=== PATIENT | female | born 1980 | race Caucasian/White ===

== ENCOUNTER 2022-05-15 23:26 | Inpatient (IN) | payer OTHER ==
[~2022-05-15] VITALS: Ht 167.6 cm; Wt 71.1 kg
[2022-05-15] MEDS ORDERED: HYDROXYZINE HCL50 MG (23:38)
[2022-05-15] MEDS ORDERED: SEROQUEL100 MG PO (23:38)
--- NOTE | 2022-05-16 04:35 | NUR ---
THIS RN DOWN TO ED TO RECEIVE PT. BEDSIDE REPORT RECEIVED FROM ESVIN FAITH. PT RESTING IN STRETCHER. IV FLUIDS INFUSING WNL. 0440 PT BROUGHT TO MED/SURG FLOOR BY THIS RN. ESVIN FRIAS IN TO ASSIST WITH VITALS. VITALS COMPLETE. PRN PAIN MEDICATION ADMINISTERED, SEE MAR. PT REPORTING PAIN 10/10 IN RUQ. QUICK ADMIT COMPLETE. DR. ENRIQUEZ IN TO TALK WITH PT REGARDING PROCEDURE. CONSENT FORM SIGNED. ALL QUESTIONS ANSWERED. ASSESSMENT COMPLETE. LUNG SOUNDS CLEAR. BOWEL TONES ACTIVE. ABD FIRM IN RUQ AND TENDERNESS REPORTED WITH PALPATION. PT DENIES NAUSEA AT THIS TIME. PT REPORTING LAST BM ON 05/14/22. PT REQUESTING TOILETING. SBA FROM BED TO RESTROOM AND BACK TO BED WITH NO ISSUES. ESVIN CHRISTY IN TO PLACE GILLES. ANESTHESIOLOGIST, HAT AND CAP PARTS CUTTER HAND IN ROOM TO TALK WITH PT. PRE-OP WIPE DOWN COMPLETE. LINENS CHANGED. PT REQUESTING REMOTE FOR TV. REMOTE PROVIDED. PT DENIES ANY OTHER NEEDS AT THIS TIME. CALL LIGHT IN REACH.
--- NOTE | 2022-05-16 06:05 | NUR ---
SURGERY NURSE IN TO TAKE PT DOWN TO SURGERY.
--- NOTE | 2022-05-16 06:27 | NUR ---
PTs FATHER TO NURSES STATION. THIS RN SHOWED FATHER TO PTs ROOM PT IS IN SURGERY AT THIS TIME. FATHER DENIES ANY NEEDS AT THIS TIME.
--- NOTE | 2022-05-16 07:47 | NUR ---
05/16/22 0747 Poppy Caba 0738 PATIENT ARRIVES TO PACU UNRESPONSIVE TO PAIN. ORAL AIRWAY IN PLACE. RESP EVEN AND UNLABORED, MASK AT 8 LITERS. NC LEFT NARE CONNECTED TO LOW/MED SUCTION AT 80. DARK RED BLOOD NOTED FROM SUCTION TUBING. 0747 PATIENT CONTINUES TO BE UNRESPONSIVE TO PAIN. RESP EVEN AND UNLABORED, OXYGEN DECREASED TO 6 LITERS.
--- NOTE | 2022-05-16 08:37 | NUR ---
PATIENT RETURNED FROM SURGERY, NG AND CAMPOVERDE CATHETER IN PLACE. UPPER MIDLINE INCISION IS COVERED WITH GUAZE AND TAPE AND IS CDI, ICE PACK TO INCISION. VITALS ARE STABLE, PATIENT IS 98% ON ROOM AIR. PATIENT DENIES PAIN TO ABDOMEN, ENDORSES THAT NG TUBE IS CAUSING 5/10 DISCOMFORT. NG TUBE IS DRAINING MINIMAL BROWN DRAINAGE, CAMPOVERDE CATHETER IS DRAINING CLEAR YELLOW URINE. PATIENT'S FATHER IS IN AND OUT OF ROOM.
--- NOTE | 2022-05-16 09:29 | NUR ---
VITALS CONTINUS TO BE STABLE. NG WITH MINIMAL DRAINAGE, PATIENT IS SITTING UP IN BED MORE. PATIENT CONTINUES TO DENY ABD PAIN. IV ABX INFUSING AT THIS TIME.
--- NOTE | 2022-05-16 11:37 | NUR ---
PATIENT IS RESTING IN BED, DENIES PAIN, PLAN TO CALL DR. ENRIQUEZ AFTER MIDDAY REGARDING NG TUBE.
--- NOTE | 2022-05-16 12:09 | NUR ---
PT AWAKE IN BED, AWAKE TALKING ON THE PHONE. DENIES FURTHER NEEDS. CALL LIGHT IN REACH.
--- NOTE | 2022-05-16 13:02 | NUR ---
CALL TO DR. ENRIQUEZ. IAN TO D/C NGRick AND GILLES. PATIENT STARTED ON CLEAR LIQUIDS AND CHICKEN BROTH PROVIDED. PATIENT IS UP TO THE CHAIR WITH SBA, CALL LIGHT WITHIN REACH. PATIENT CONTINUES TO DENY ABD PAIN.
--- NOTE | 2022-05-16 14:32 | NUR ---
PATIENT HAS TOLERATED 200ML OF CLEAR LIQUIDS, NO NAUSEA, PATIENT IS GOING SLOWLY WITH FLUIDS. PATIENT DENIES THE URGE TO VOID, IS UP TO THE CHAIR. PATIENT REPORTS MINIMAL 1-2/10 ABDOMEN PAIN. PATIENT'S FATHER AND CHILDREN ARE HERE TO VISIT
--- NOTE | 2022-05-16 16:55 | NUR ---
PATIENT UP IN HALLWAY TO AMBULATE 1 LAP. PATIENT GIVEN TORADOL AND DILAUDID FOR 9/10 PAIN PRIOR TO AMBULATING. PATIENT HAS VOIDED 300ML OF URINE SINCE CAMPOVERDE REMOVAL.
--- NOTE | 2022-05-16 18:16 | NUR ---
PATIENT HAD HERNIA SURGERY TODAY AND HAS PROGRESSED WELL. NGT AND CAMPOVERDE CATHETER D/C'D. PATIENT HAS DONE WELL WITH CLEAR LIQUID DIET AND HAS LIMITED HERSELF FOR INTAKE. PATIENT HAD HAD HER CAMPOVERDE CATHETER D/C'D AND HAS BEEN UP TO VOID AND AMBULATE IN THE HALLWAY.
--- NOTE | 2022-05-16 19:34 | NUR ---
REPORT RECEIVED FROM DAY SHIFT RN. PT LYING IN BED ALERT AND ORIENTED. REPORTS ABD PAIN TOLERABLE /. IV IN LEFT AC INFILTRATED. IV DC'D WNL. TIP INTACT. IVF INFUSING RIGHT AC WNL. PT DENIES NEEDS. WHITE BOARD UPDATED. VISITORS IN ROOM.
--- NOTE | 2022-05-16 21:08 | NUR ---
PT REPORTS ABD PAIN 08/30. PRN FOR PAIN ADMIN PER ORDER. DENIES NAUSEA. BROTH PROVIDED. UP TO BR WITH SBA TO VOID 500 ML CONCENTRATED URINE. BACK TO BED, CHAZ WELL. ICE PACK TO INCISION. NO FURTHER NEEDS AT THIS TIME. FAMILY REMAINS IN ROOM.
--- NOTE | 2022-05-16 21:31 | NUR ---
FAMILY GONE FOR THE EVENING. EVENING ASSESSMENT COMPLETE. MIDLINE INCISION WITH DRESSING CDI. ABD SOFT. BOWEL TONES ACTIVE. PT REPORTS FLATUS. DENIES NAUSEA. ICE PACK TO INCISION. IVF INFUSING WNL. PT DENIES QUESTIONS OR CONCERNS. CALL LIGHT IN REACH.
--- NOTE | 2022-05-16 23:19 | NUR ---
PT AWAKE IN BED. REPORTS ABD PAIN 5/10. PRN FOR PAIN ADMIN PER EMAR. NO FURTHER NEEDS.
--- NOTE | 2022-05-17 00:50 | NUR ---
ROUNDING ON PT. PT AWAKE IN BED ON PHONE. REPORTS ABD PAIN 07/31. PRN FOR PAIN ADMIN PER EMAR. FRESH ICE PACK PROVIDED. UP TO BR WITH MINIMAL SBA TO VOID. GAIT STEADY. BACK TO BED, CHAZ WELL.
--- NOTE | 2022-05-17 02:41 | NUR ---
PT AWAKE IN BED. TEARFUL, REPORTS STRESS RELATED TO CURRENT [facility] SITUATION AND HOME LIFE. COMFORT PROVIDED. VS AND I&O OBTAINED. PT REPORTS ABD PAIN 07/31. PRN FOR PAIN ADMIN PER EMAR. PT DENIES NAUSEA. ABD ASSESSMENT UNCHANGED. DRESSING CDI. ICE TO INCISION. NO FURTHER NEEDS. CALL LIGHT IN REACH.
--- NOTE | 2022-05-17 03:56 | NUR ---
CALL LIGHT ANSWERED. PT UP TO BR WITH MINIMAL ASSIST TO VOID. BACK TO BED, CHAZ WELL. GAIT STEADY. REPORTS ABD PAIN IMPROVED AFTER PRN ADMIN. NO FURTHER NEEDS. CALL LIGHT IN REACH.
--- NOTE | 2022-05-17 05:22 | NUR ---
VS AND I&O OBTAINED. PT REPORTS ABD PAIN TOLERABLE /. FRESH ICE PACK TO INCISION. PT DENIES NAUSEA. NO FURTHER NEEDS. CALL LIGHT IN REACH.
--- NOTE | 2022-05-17 06:12 | NUR ---
CALL LIGHT ANSWERED. PT UP TO BR TO VOID. BACK TO BED, CHAZ WELL. REPORTS LEFT EYE IRRITATION. SLIGHT REDNESS NOTED. WARM COMPRESS PROVIDED. WARM BLANKET ALSO PROVIDED. NO FURTHER NEEDS.
--- NOTE | 2022-05-17 06:31 | CONS ---
[facility] [address], [place] [address] Signed DATE OF CONSULTATION: 05/16/2022 CHIEF COMPLAINT: Painful subxiphoid lump. HISTORY OF PRESENT ILLNESS: Carolina is a 41-year-old female who underwent a laparoscopic cholecystectomy at [facility] in [place], [place]. She is currently at our [facility]. She describes a painful lump just below the xiphoid process. Apparently in the past, people have been able to reduce that and only herself, her , but also ER doctors. On this occasion, it would not reduce. They brought her to the emergency room for evaluation. Our ER physician could not reduce it. A CT scan of abdomen and pelvis confirms the incarcerated small bowel. Her white count is up at 15.8, her lactic acid is up as well. In the meantime, she has been given some pain medicine, Zosyn and IV fluids. I have been asked to see her in the emergency room. I have been helping with another patient who had been in atrial fibrillation with a rapid ventricular heart rate as well. We have now made it to [place]. She said it really has not changed since she got here. 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 PAST SURGICAL HISTORY: Includes right ankle surgery x2. She had bone graft taken from her right hip and she has had a laparoscopic cholecystectomy at [facility] in [place], [place]. SOCIAL HISTORY: She is . She is current at the [facility]. She has no primary care provider. Apparently, she has a history of cocaine and opiates in the past. FAMILY HISTORY: None. REVIEW OF SYSTEMS: She had 10 systems reviewed and nothing new to add currently. ALLERGIES: None. MEDICATIONS: Hydroxyzine and Seroquel. Electronically Signed By: EDWARDO VIVAS MD 05/17/22 0631 PATIENT NAME: CAROLINA ASHER CONSULTATION DATE OF : 80 REPORT #: [id number] PHYSICIAN: EDWARDO VIVAS MD PCP: NO PRIMARY CARE PHYSICIAN REPORT IS CONFIDENTIAL AND NOT TO BE RELEASED WITHOUT AUTHORIZATION [facility] [address], [place] [address] Signed PHYSICAL EXAMINATION: VITAL SIGNS: Her blood pressure is 126/77, her heart rate is 68, respiratory rate 16, temperature is 98.1. She is 100% on room air. She is 5 feet 6 inches at 71 kg with a body mass index of 25. GENERAL: Carolina is a 41-year-old female, who is lying supine in her ER bed. Our nurse is just getting ready to take her down to her med surgery room. She is thin. She is obviously grimacing in pain. I can easily see and feel the incarcerated subxiphoid trocar site incisional hernia. It is obviously tender. No local signs or symptoms of infection or changes to the overlying skin. LABORATORY DATA: Her white blood count 15.8, hemoglobin 13. Electrolytes unremarkable. Lactic acid was 2.9, it is now 2.6. COVID was negative. LFTs are negative. Albumin is 4.4. Beta-hCG is negative. Her blood cultures are pending. RADIOGRAPHIC STUDIES: CT scan of abdomen and pelvis are reviewed and one can easily see this subxiphoid incisional hernia with small bowel measuring about 2.6 cm with some inflammation and of course the defect in the abdominal wall is not particularly large, maybe 1.5 cm or so. ASSESSMENT AND PLAN: Carolina is a 41-year-old female who has an incarcerated symptomatic subxiphoid trocar site incisional hernia. She has had it down to her med/surg bed currently. We are going to call the crew in order to get her to the operating room here very shortly to repair this hernia and evaluate the bowel. She understands that if the bowel is not viable, I will have to resect it and do an anastomosis. She will be in the hospital obviously several days depending on what we find. There is risk to the surgery including, but not limited to bleeding, infection, scarring, change in contour of the skin, damage to bowel, anastomotic leak, recurrent incisional hernias and other unforeseen comorbidities. She has expressed understanding and would like to proceed. Edwardo Vivas MD ALB/MODL /[id number] cc: Edwardo Vivas MD Electronically Signed By: EDWARDO VIVAS MD 05/17/22 0631 PATIENT NAME: CAROLINA ASHER CONSULTATION DATE OF : 80 REPORT #: [id number] PHYSICIAN: EDWARDO VIVAS MD PCP: NO PRIMARY CARE PHYSICIAN REPORT IS CONFIDENTIAL AND NOT TO BE RELEASED WITHOUT AUTHORIZATION [address] [address] Signed Copies: EDWARDO VIVAS MD ~ Electronically Signed By: EDWARDO VIVAS MD 05/17/22 0631 PATIENT NAME: CAROLINA ASHER CONSULTATION DATE OF : 80 REPORT #: [id number] PHYSICIAN: EDWARDO VIVAS MD PCP: NO PRIMARY CARE PHYSICIAN REPORT IS CONFIDENTIAL AND NOT TO BE RELEASED WITHOUT AUTHORIZATION
--- NOTE | 2022-05-17 06:31 | OR ---
[facility] [address], [place] [address] Signed DATE OF OPERATION: 05/16/2022 SURGEON: Edwardo Vivas MD PREOPERATIVE DIAGNOSES: Incarcerated symptomatic subxiphoid trocar-site incisional hernia (1.4 cm). POSTOPERATIVE DIAGNOSIS: Incarcerated symptomatic subxiphoid trocar-site incisional hernia (1.4 cm). PROCEDURES: Primary repair of incarcerated symptomatic subxiphoid trocar site incisional hernia. ESTIMATED BLOOD LOSS: 5 mL. INDICATIONS: Carolina is a 41-year-old female who has been in [facility] recently. Apparently, she has a history of cocaine and opiate abuse in the past. She was on methadone for quite some time and apparently she is weaning down on Suboxone. She said it has been about three days since the Suboxone as she thought she was starting to withdrawal little bit while in the [facility]. Number of years ago she had a laparoscopic cholecystectomy performed at [facility] in [place], [place]. It was done with three ports. She has had a hernia at the subxiphoid trocar site since that time. She said usually her , herself or the ER doctor can reduce it. On this occasion it was much more firm and much more painful. They brought her in from the halfway to the emergency room. Even with some sedation and pain medication our ER doctor could not reduce it. The CT scan confirmed the small bowel in her hernia. There were some inflammatory changes. The defect in the abdominal wall was about 1.4 cm. Her white count was elevated, so was a lactic acid. Beta-hCG was negative. I had come to the emergency room to see her. Indeed, it is easy to see and feel this hernia. I explained to Carolina the nature of her hernia. I explained that we needed to take her to surgery as soon as possible to reduce that bowel. There is always a risk that the bowel would be nonviable and have to be resected. Usually in the situations we closed the defect primarily. She understands there is risk including, but not limited to bleeding, infection, scarring, change in contour of the skin, damage to bowel, anastomotic leak, recurrent hernias, as well as chronic pain. I also reviewed the expected intraop and postop course with her. She had expressed understanding and wished to proceed. PROCEDURE IN DETAIL: Electronically Signed By: EDWARDO VIVAS MD 05/17/22 0631 PATIENT NAME: CAROLINA ASHER OPERATIVE REPORT DATE OF : 80 REPORT #: [id number] PHYSICIAN: EDWARDO VIVAS MD PCP: NO PRIMARY CARE PHYSICIAN REPORT IS CONFIDENTIAL AND NOT TO BE RELEASED WITHOUT AUTHORIZATION [facility] [address], [place] [address] Signed Carolina was taken in the operating room and placed in the supine position under general endotracheal tube anesthesia. She was already given her preoperative antibiotics along with subcutaneous heparin. SCDs were in place. We had already placed a Peter catheter without difficulty down on our medical floor. She had clear yellow urine. In the operating room while she was awake we went ahead and placed an NG tube with minimal return. She had already vomited several times. She was then prepped and draped in the usual sterile fashion. Once she was pharmacologically paralyzed, it seemed like the subcutaneous mass was much smaller. We used a tip standard midline incision. We went down around the hernia sac with the help of the cautery. It took a few minutes to open up the hernia sac and indeed the bowel had self reduced. The falciform ligament was involved so we divided that between p.r.n. clamps. We also divided the rest of the hernia sac between Pean clamps and 0 Vicryl ties. We had to extend her fascial defect medially about a cm. The total defect then was about 2.5 cm. Once we were able to do that we could see inside the abdomen quite readily. All the bowel that we could see and move around was quite healthy. It was all small bowel. After this, we used #2 interrupted Prolene sutures in [id number] fashion to close her defect primarily. We injected local anesthetic into the abdominal wall in the subcutaneous tissues. The wound was irrigated and suctioned out until clear. We closed the dermis with interrupted 3-0 subcuticular Monocryl sutures. We closed the skin with a running 5-0 fast absorbing plain gut suture. Dry gauze and tape were then applied. We left her NG tube and Peter catheter in place. Carolina was weaned from her anesthesia, extubated in the OR, and taken to recovery room in stable condition. Edwardo Vivas MD ALB/MODL /[id number] cc: Edwardo Vivas MD Copies: EDWARDO VIVAS MD ~ Electronically Signed By: EDWARDO VIVAS MD 05/17/22 0631 PATIENT NAME: CAROLINA ASHER OPERATIVE REPORT DATE OF : 80 REPORT #: [id number] PHYSICIAN: EDWARDO VIVAS MD PCP: NO PRIMARY CARE PHYSICIAN REPORT IS CONFIDENTIAL AND NOT TO BE RELEASED WITHOUT AUTHORIZATION
--- NOTE | 2022-05-17 07:21 | NUR ---
REPORT FROM ESVIN COLLINS.
[2022-05-17] MEDS ORDERED: HYDROCODON-ACE1 EAC8 PO (08:41)
[2022-05-17] MEDS ORDERED: IBUPROFEN400 MG PO (08:45)
--- NOTE | 2022-05-17 09:00 | NUR ---
MORNING ASSESSMENT DONE. PATIENT IS SALING LOCKED, REGULAR DIET ORDERED, ITEMS IN THE BATHROOM FOR A SHOWER. PATIENT RATES HER PAIN 7/10 AND WAS GIVEN X2 NORCO WITH BREAKFAST. PATIENT IS TALKING ON THE PHONE WITH FAMILY ABOUT TRANSPORTATION PLANS WHEN SHE IS READY TO GO HOME.
--- NOTE | 2022-05-17 09:57 | NUR ---
PATIENT IS UP TO THE SHOWER.
--- NOTE | 2022-05-17 10:17 | NUR ---
SPOKE TO THE PATIENT ABOUT HER DISCHARGE PLAN. PATIENT WAS RELEASED FROM THE [facility] TO HAVE HERNIA SURGERY. PATIENT WILL RETURNED TO THE [facility] WHEN PATIENT IS DISCHARGED . THE PATIENT IS TO CALL HER PO ON DISCHARGE. PATIENT DOES HAVE A SPOUSE AND 4 CHILDREN THAT LIVE IN [facility]. PATIENT STATES HER PARENTS ALSO HELP IF NEEDED. PATIENT DOES HAVE A PCP HOLLY SORENSEN . PATIENT DOES HAVE A HISTORY OF CHEMICAL DEPENDENCE BUT DENIES THE NEED FOR ANY HELP. PATIENT PLANS TO GO BACK TO SKILLED NURSING TODAY.
--- NOTE | 2022-05-17 10:25 | NUR ---
PATIENT GIVEN DISCHARGE INSTRUCTIONS, IS AWAITING A RIDE HOME.
--- NOTE | 2022-05-17 16:21 | DS ---
[facility] [address], [place] [address] Signed ADMISSION DATE: 05/16/2022 DISCHARGE DATE: 05/17/2022 FINAL DIAGNOSIS: Incarcerated symptomatic subxiphoid trocar site incisional hernia. PROCEDURE: Primary repair of trocar site incisional hernia. HISTORY OF PRESENT ILLNESS: Lisa is a 41-year-old female who is incarcerated at the [facility]. She had a laparoscopic cholecystectomy a number years ago. She has had a reducible subxiphoid trocar site incisional hernia for a number years. Usually, she, her or the ER doctor can reduce it. On this occasion, it was stuck and quite painful. She was brought to our local emergency room for evaluation. HOSPITAL COURSE: Lisa was seen in the emergency room by ER doctor and myself. We were not able to reduce her hernia. She was painful and therefore we took her straight to the operating room yesterday. She had the typical trocar site incisional hernia. It was reduced once she was pharmacologically paralyzed. We were able to close the hole primarily. We had kept her overnight. The bowel that we could see inside through the hole all appeared healthy. She is tolerating clear liquid diet and done well with her hydrocodone. This morning, her abdomen is soft, flat, and nontender. The incision is quite unremarkable. Consequently, we are going to increase to a regular diet with plans to discharge her later this morning. DISCHARGE PLANS AND MEDICATIONS: Lisa will be discharged from the hospital with a prescription for Cavendish 10/325 one tablet p.o. q.6 hours p.r.n. for severe postoperative pain. Dispense 30 tablets with no refills. She can use Tylenol, ibuprofen, or Aleve for [id number] postoperative pain. That can be purchased [id number]. She is welcome to resume her chronic medications including the Seroquel and hydroxyzine. Once she is off her hydrocodone, she can resume the Suboxone. She will continue a regular diet. She can walk up and down stairs and shower and bathe as usual. She should not do any heavy pushing, pulling, or lifting over about 20 pounds. She will return to my office in about 7-14 days for followup. I have reviewed this with Lisa in detail. She has expressed understanding, agrees above plan. Electronically Signed By: EDWARDO VIVAS MD 05/17/22 1621 PATIENT NAME: LISA ASHER DISCHARGE SUMMARY DATE OF : 80 REPORT #: [id number] PHYSICIAN: EDWARDO VIVAS MD PCP: NO PRIMARY CARE PHYSICIAN REPORT IS CONFIDENTIAL AND NOT TO BE RELEASED WITHOUT AUTHORIZATION [facility] [address], [place] [address] Signed MD PRIYANK Shaw/JACL /[id number] cc: [facility] Edwardo Vivas MD Copies: EDWARDO VIVAS MD ~ Electronically Signed By: EDWARDO VIVAS MD 05/17/22 1621 PATIENT NAME: LISA ASHER DISCHARGE SUMMARY DATE OF : 80 REPORT #: [id number] PHYSICIAN: EDWARDO VIVAS MD PCP: NO PRIMARY CARE PHYSICIAN REPORT IS CONFIDENTIAL AND NOT TO BE RELEASED WITHOUT AUTHORIZATION
== END 2022-05-17 11:05 | disposition home or self-care (01) | DRG 355 ==
LOC: ED 23:26 → MS 23:28
PROVIDERS: ADMIT Colon & Rectal Surgery; ATTEND Colon & Rectal Surgery
PROC: 0WQF0ZZ Repair Abdominal Wall, Open Approach (ICD-10-PCS; principal; 2022-05-16 06:37)
DX: K43.0 Incisional hernia with obstruction, without gangrene (principal); Z20.822 Contact with and (suspected) exposure to COVID-19; F32.A Depression, unspecified; Z90.49 Acquired absence of other specified parts of digestive tract; Z98.890 Other specified postprocedural states; Z79.899 Other long term (current) drug therapy
CPT/HCPCS: 36415; 74177; 80048; 80053; 81003; 83605; 83690; 83735; 84100; 84703; 85025; A9270; C9113; C9803; J0131; J0694; J0696; J1100; J1170; J1650; J1885; J2250; J2270; J2405; J2543; J2704; J2795; J3010; J7121; Q9967; U0003